=== PATIENT | female | born 1985 | race Hispanic/Latino ===

== ENCOUNTER 2017-09-11 23:00 | Inpatient (IN) | payer MEDICAID ==
[2017-09-11] MEDS ORDERED: STADOL IV PRN (23:21)
[2017-09-11] MEDS ORDERED: LACTATED RINGERS 1,000 ML IV SCH (23:45)
[2017-09-11 23:58] LABS: Hematocrit 38.4 % (30.3-42.9); Hemoglobin 12.6 gm/dl (10.1-14.3); Mean Corpuscular HGB Conc 33 % (30-34); Mean Corpuscular Hemoglobin 30 pg (28-32); Mean Corpuscular Volume 93 fl (79-97); Platelet Count 181 K/mm3 (140-440); Red Blood Count 4.14 M/mm3 (3.65-5.03); Red Cell Distribution Width 13.5 % (13.2-15.2)
[2017-09-12] MEDS ORDERED: CYTOTEC VG SCH
[2017-09-12] MEDS ORDERED: PITOCin/NS 30 UNIT/500ML 30 UNITS/500 ML BAG IV SCH (02:00)
[2017-09-12] MEDS ORDERED: LACTATED RINGERS 1,000 ML IV SCH (02:00)
[2017-09-12] MEDS ORDERED: POLYCILLIN/NS 2 GM/100 ML 2 GM/100 ML BAG IV ONE (08:00)
[2017-09-12] MEDS ORDERED: PITOCin/NS 20 UNIT/1000ML DRIP 20,000 MILLIUNITS/1,000 ML BAG IV ONE ×2 (09:22→12:31)
[2017-09-12] MEDS ORDERED: XYLOCAINE 2% INFILTRATI ONE (09:29)
[2017-09-12] MEDS ORDERED: METHERGINE IM ONE (09:41)
[2017-09-12] MEDS ORDERED: MOTRIN PO PRN (09:50)
--- NOTE | 2017-09-12 09:51 | History and Physical Report ---
History of Present Illness Date of examination: 09/11/17 Date of admission: 09/11/17 23:00 Chief complaint: I'm here for induction History of present illness: Patient is a 31-year-old 5 para 3 who presents for induction of 41 weeks gestation. She started care in the first trimester and has had a uncomplicated course. She is GBS positive Past History Past Medical History: no pertinent history Past Surgical History: no surgical history Family/Genetic History: none Social history: - Obstetrical History Expected Date of Delivery: 09/04/17 Actual Gestation: 41 Week(s) 1 Day(s) : 5 Para: 2 Number of Living Children: 2 Medications and Allergies Allergies Allergy/AdvReac Type Severity Reaction Status Date / Time No Known Allergies Allergy Unverified 09/11/17 23:19 Home Medications Medication Instructions Recorded Confirmed Last Taken Type No Known Home Medications [No 09/12/17 09/12/17 Unknown History Reported Home Medications] Active Meds: Active Medications Butorphanol Tartrate (Stadol) 2 mg IV Q2H PRN PRN Reason: Labor Pain Last Admin: 09/12/17 07:13 Dose: 2 mg Lactated Ringer's (Lactated Ringers) 1,000 mls @ 125 mls/hr IV DIRECT SANTY Oxytocin/Sodium Chloride (Pitocin/Ns 30 Unit/500ml) 30 units in 500 mls @ 2 mls /hr IV TITR SANTY; Protocol Last Titration: 09/12/17 06:04 Dose: 6 ml/hr, 6 mls/hr Ibuprofen (Motrin) 600 mg PO Q8H PRN PRN Reason: Pain, Mild (1-3) Misoprostol (Cytotec) 25 mcg VG Q4H SANTY Review of Systems All systems: negative Genitourinary: contractions, other (vaginal pressure) - Vital Signs Vital signs: Vital Signs Pulse Pulse Ox 78 98 09/11/17 23:35 09/11/17 23:35 Temp Pulse Resp BP Pulse Ox 96.7 F L 87 16 132/88 100 09/12/17 03:43 09/12/17 09:51 09/12/17 07:43 09/12/17 07:41 09/12/17 09:51 - Physical Exam Breasts: Positive: deferred Cardiovascular: Regular rate, Normal S1, Normal S2 Lungs: Positive: Clear to auscultation, Normal air movement Abdomen: Positive: normal appearance, soft, normal bowel sounds. Negative: distention, tenderness Vulva: both: normal Vagina: Positive: normal moisture. Negative: discharge Cervix: Negative: lesion, discharge Uterus: Positive: normal size, normal contour Adnexa: both: normal Anus/Rectum: Positive: normal perianal skin, heme negative. Negative: rectal mass, hemorrhoids Extremities: Deep Tendon Reflex Grade: Normal +2 - Obstetrical FHR: auscultation normal Cervical Dilatation: 1 Cervical Effacement Percentage: 50 station: 3 Uterine Contraction Pattern: Irregular Uterine Contraction Intensity: Mild Results Result Diagrams: 09/11/17 23:36 All other labs normal. Assessment and Plan IUP at 41 weeks for postdates induction. Will begin induction tonight with Pitocin. We'll AROM when able. Treat with ampicillin for GBS status. Anticipate .
--- NOTE | 2017-09-12 09:52 | Procedure Note ---
OB Delivery Note - Delivery Date of Delivery: 09/12/17 Surgeon: ALEISHA SAN Estimated blood loss: 300cc - Vaginal Delivery presentation: vertex Delivery position: OA Intrapartum events: none Delivery induction: oxytocin Delivery monitor: external FHT, external uterine Route of delivery: Delivery placenta: spontaneous Delivery cord: 3 umbilical vessels Episiotomy: none Delivery laceration: 2nd degree Delivery repair: vicryl Anesthesia: none Delivery comments: Viable female delivered over an intact perineum. Weight 7 lbs. 6 oz. Apgars 9 and 9. was placed on the maternal chest. The cord was clamped and cut when it was done pulsating. The placenta was delivered spontaneously and intact. The second-degree laceration was repaired with 2-0 Vicryl for excellent hemostasis. Patient tolerated the procedure well. - A at 1 minute: 9 at 5 minutes: 9 Gender: Female (7 pounds 6 ounces)
[2017-09-12] MEDS ORDERED: DULCOLAX PR PRN (12:27)
[2017-09-12] MEDS ORDERED: PHENERGAN PR PRN (12:27)
[2017-09-12] MEDS ORDERED: ZOFRAN IV PRN (12:27)
[2017-09-12] MEDS ORDERED: SODIUM CHLORIDE FLUSH SYRINGE 10 ML IV SCH (12:27)
[2017-09-12] MEDS ORDERED: METHERGINE IM PRN (12:27)
[2017-09-12] MEDS ORDERED: BENADRYL PO PRN (12:27)
[2017-09-12] MEDS ORDERED: MILK OF MAGNESIA PO PRN (12:27)
[2017-09-12] MEDS ORDERED: TYLENOL PO PRN (12:27)
[2017-09-12] MEDS ORDERED: LANSINOH TP PRN (12:27)
[2017-09-12] MEDS ORDERED: PHENERGAN PO PRN (12:27)
[2017-09-12] MEDS ORDERED: TUCKS PAD TP PRN (12:27)
[2017-09-12] MEDS: MOTRIN PO SCH ×2 (15:00→21:50)
[2017-09-12] MEDS: PRENATAL VITAMIN PO SCH (15:01)
[2017-09-12] MEDS ORDERED: DERMOPLAST TP PRN (17:47)
[2017-09-12] MEDS: COLACE PO SCH (21:48)
[2017-09-12 21:55] LABS: Hematocrit 29.3 % (30.3-42.9); Hemoglobin 10.1 gm/dl (10.1-14.3)
[2017-09-13] MEDS: MOTRIN PO SCH ×3 (08:33→20:10)
[2017-09-13] MEDS: COLACE PO SCH ×2 (10:13→21:44)
[2017-09-13] MEDS: NORCO 5/325 PO PRN ×3 (10:13→23:18)
[2017-09-13] MEDS: PRENATAL VITAMIN PO SCH (10:13)
--- NOTE | 2017-09-13 14:00 | Progress Note ---
Assessment and Plan Patient in NICU with baby, but appears well. Will discharge on tomorrow. Subjective - Subjective Date of service: 09/13/17 Interval history: Patient is a 31-year-old 5 para 3 who presents for induction of 41 weeks gestation. She started care in the first trimester and has had a uncomplicated course. She is GBS positive Patient reports: appetite normal, voiding normally, pain well controlled, ambulating normally : in NICU (baby transferred to NICU for low O2 sats.) Objective - Vital Signs Latest vital signs: Vital Signs Temp Pulse Resp BP BP Pulse Ox 09/13/17 08:44 98.2 F 84 18 104/69 98 09/13/17 00:50 98.3 F 84 20 111/67 98 09/12/17 22:50 18 09/12/17 22:07 98.0 F 83 20 109/66 99 09/12/17 21:50 18 09/12/17 21:30 98.0 F 83 20 109/66 99 09/12/17 16:00 98.5 F 85 18 105/67 Intake and Output 09/12/17 09/13/17 09/13/17 22:59 06:59 14:59 Intake Total 480 240 120 Output Total 200 Balance 280 240 120 Intake: Oral 480 240 120 Output: Urine 200 Void 200 Other: Total, Intake Amount 240 120 120 Total, Output Amount 200 # Voids Void 1 1 1 - Labs Labs: Abnormal lab results 09/12/17 Range/Units 21:35 Hct 29.3 L D (30.3-42.9) %
[2017-09-14] MEDS: MOTRIN PO SCH (02:05)
[2017-09-14] MEDS: NORCO 5/325 PO PRN (07:40)
--- NOTE | 2017-09-14 15:03 | Discharge Summary ---
Providers - Providers Date of Admission: 09/11/17 23:00 Date of discharge: 09/14/17 Attending physician: ALEISHA SAN Primary care physician: ALEISHA SAN Hospitalization Reason for admission: induction of labor, other (IUP at 41 weeks) Delivery: Episiotomy: none Laceration: none complications: none Discharge diagnosis: IUP at term delivered [place] baby: female Condition at discharge: Good Disposition: [id number] TO HOME OR SELFCARE Plan - Provider Discharge Summary Activity: routine, no sex for 6 weeks, no heavy lifting 4 weeks, no strenuous exercise Diet: routine Instructions: routine Additional instructions: [] Smoking cessation referral if applicable(refer to patient education folder for contact #) [] Refer to [facility]'s [facility] Booklet Call your doctor immediately for: * Fever > 100.5 * Heavy vaginal bleeding ( >1 pad per hour) * Severe persistent headache * Shortness of breath * Reddened, hot, painful area to leg or breast * Drainage or odor from incision. * Keep incision clean and dry at all times and follow doctor's instructions regarding bathing/showering - Follow up plan Follow up: ALEISHA SAN MD [Primary Care Provider] - 6 Weeks
[2017-09-14 17:45] VITALS: BP 118/73
== END 2017-09-14 17:50 | disposition home or self-care (01) | DRG 775 ==
LOC: LD 23:00 → OB 09-12 12:20
PROVIDERS: ADMIT Obstetrics & Gynecology; ATTEND Obstetrics & Gynecology
PROC: 10E0XZZ Delivery of Products of Conception, External Approach (ICD-10-PCS; principal; 2017-09-12)
PROC: 0KQM0ZZ Repair Perineum Muscle, Open Approach (ICD-10-PCS; 2017-09-12)
PROC: 3E033VJ Introduction of Other Hormone into Peripheral Vein, Percutaneous Approach (ICD-10-PCS; 2017-09-12)
DX: O48.0 Post-term pregnancy (principal); O99.824 Streptococcus B carrier state complicating childbirth; Z3A.41 41 weeks gestation of pregnancy; Z37.0 Single live birth; O70.1 Second degree perineal laceration during delivery
CPT/HCPCS: 36415; 85014; 85018; 85027; 86592; 86850; 86900; 86901; 99211; G0463; J0290; J0595; J2210; J2590; J7120